=== PATIENT | female | born 1940 | race Caucasian/White ===

== ENCOUNTER 2016-06-04 10:16 | Observation (INO) ==
[2016-06-04 10:52] LABS: Basophils # 0.1 K/mcL (0.0-0.2); Basophils % 0.6 %; Eosinophils # 0.1 K/mcL (0.0-0.6); Eosinophils % 1.5 %; Hemoglobin 12.7 g/dL (11.5-15.4); Immature Granulocytes % 0.4 % (0-4); Lymphocytes % 23.6 %; Mean Corpuscular HGB Conc 30.2 g/dL (31.6-35.5); Mean Corpuscular Hemoglobin 25.3 pg (28.0-33.3); Mean Corpuscular Volume 83.7 fL (83.0-100.0); Mean Platelet Volume 10.1 fL (9.4-12.4); Monocytes # 0.5 K/mcL (0.0-1.3); Monocytes % 6.4 %; Neutrophils # 5.7 K/mcL (1.6-8.9); Platelet Count 236 K/mcL (140-400); Red Blood Count 5.02 M/mcL (3.82-4.97); Red Cell Distribution Width 14.1 % (11.5-14.5); Segmented Neutrophils % 67.5 %
[2016-06-04 10:56] LABS: Prothrombin Time 11.3 Seconds (9.4-12.1)
--- NOTE | 2016-06-04 11:07 | Emergency Department Note ---
Disposition Clinical Impression: Confusion, Carotid artery aneurysm Chest pain Qualifiers: Chest pain type: unspecified Qualified Code(s): R07.9 - Chest pain, unspecified Disposition: Admitted As Inpatient Condition: Fair Forms: ED Satisfaction Letter Time of Disposition: 12:21 Chest Pain HPI - General Chief Complaint: ED Chest Pain Stated Complaint: SOB, CP, AMS Time Seen by Provider: 06/04/16 10:24 Source: patient, EMS Mode of arrival: EMS Limitations: altered mental status Vital Signs Reviewed: Yes Nursing Notes Reviewed: Yes - History of Present Illness HPI Narrative: Patient presents via EMS from her apartment. It was reported that she was confused. She is uncertain of this. She did complain of chest pain that lasted several minutes with spontaneous resolution. It was associated with dyspnea. She denies other symptoms although she is a confused historian Pt complaint: chest pain Onset (ago): hour(s) Duration: now resolved Onset: during rest Pain Location: substernal Severity scale (1-10): 0 Pain Radiation: none Improves with: nothing Worsens with: nothing Associated symptoms: Reports: dyspnea - Related Data On Oral Contraceptives: No Home Medications Medication Instructions Recorded Confirmed Albuterol Sulfate [Proventil Hfa] 2 puff IH Q4H 05/05/15 05/05/15 Amlodipine [Norvasc] 2.5 mg PO DAILY 05/05/15 05/05/15 Aspirin [Adult Low Dose Aspirin EC] 81 mg PO DAILY 05/05/15 05/05/15 Calcium Carbonate/Vitamin D3 1 tab PO DAILY 05/05/15 05/05/15 [Calcium 600 + Vit D Tablet] Clopidogrel [Plavix] 75 mg PO DAILY 05/05/15 05/05/15 Enalapril Maleate [Vasotec] 20 mg PO BID 05/05/15 05/05/15 Ergocalciferol (VITAMIN D2) 50,000 unit PO QWEEK 05/05/15 05/05/15 [Vitamin D2 (50,000 UNIT)] Furosemide [Lasix] 20 mg PO DAILY 05/05/15 05/05/15 Memantine HCl [Namenda Xr] 28 mg PO DAILY 05/05/15 05/05/15 Pravastatin Sodium [Pravachol] 40 mg PO DAILY 05/05/15 05/05/15 Tiotropium [Spiriva] 18 mcg IH DAILY 05/05/15 05/05/15 Previous Rx's Medication Instructions Recorded CloNIDine HCl 0.1 mg PO BID #60 tablet 05/06/15 Acyclovir [Zovirax] 800 mg PO 5XD #50 tablet 09/12/15 Doxycycline 100 mg PO BID #14 capsule 09/12/15 Allergies Allergy/AdvReac Type Severity Reaction Status Date / Time No Known Allergies Allergy Verified 05/05/15 17:44 Limitations: ROS unobtainable due to patients medical condition Chest Pain PMH - Past Medical History Medical history: Reports: diabetes, other Surgical history: Reports: angioplasty/stent, other Psychiatric history: Reports: no psych history - Social History Smoking Status: Never smoker Alcohol use: Reports: none Drug use: Reports: none Physical Exam Alert. Answers most questions appropriately but is confused to certain historical events. Her name, her middle name, her location, but is confused to her daughter's name - General Limitations: altered mental status General appearance: alert, in no apparent distress - Head Head exam: atraumatic - Eye Eye exam: Present: normal appearance - ENT ENT exam: normal exam - Neck Neck exam: Present: normal inspection - Chest Chest inspection: Present: normal inspection, symmetric chest wall rise - Respiratory Respiratory exam: Present: normal lung sounds bilaterally - Cardiovascular Cardiovascular exam: Present: regular rate, normal rhythm, normal heart sounds - Abdominal Exam Abdominal exam: Present: soft, Non-Tender - Extremities Exam Extremities exam: Present: normal inspection - Neurological Exam Neurological exam: Present: alert, oriented X3, other (Moves all 4 extremities with symmetric strength upon request) - Psychiatric Psychiatric exam: Present: normal affect, normal mood - Skin Skin exam: Present: warm, dry, intact Course Course Narrative: The patient presents with confusion. She also described self remitting chest pain and dyspnea. She appears in no acute distress. She is slightly confused but has an otherwise nonfocal neurologic exam. Workup initiated - Reevaluation(s) Reevaluation #1: Patient resting comfortably at time of reexam. She is watching TV but is uncertain what the program is. I am unsure if her confusion is normal baseline for her. I requested admission for chest pain evaluation and observation. Vital Signs Temperature 98.5 F 06/04/16 10:18 Pulse Rate 65 06/04/16 10:18 Respiratory Rate 18 06/04/16 10:18 Blood Pressure 193/82 06/04/16 10:18 O2 Sat by Pulse Oximetry 94 06/04/16 10:18 Temperature 98.5 F 06/04/16 10:18 Pulse Rate 62 06/04/16 11:37 Respiratory Rate 18 06/04/16 11:37 Blood Pressure 131/87 06/04/16 11:37 O2 Sat by Pulse Oximetry 94 06/04/16 11:37 Oxygen Delivery Oxygen Delivery Room Air Chest Pain - Lab Data Lab results reviewed: Yes I reviewed the patient's lab results. Result diagrams: 06/04/16 10:41 06/04/16 10:41 Lab Results 06/04/16 06/04/16 06/04/16 Range/Units 10:41 10:41 10:41 WBC 8.4 (4.3-11.1) K/mcL RBC 5.02 H (3.82-4.97) M/mcL Hgb 12.7 (11.5-15.4) g/dL Hct 42.0 (35.3-44.9) % MCV 83.7 (83.0-100.0) fL MCH 25.3 L (28.0-33.3) pg MCHC 30.2 L (31.6-35.5) g/dL RDW 14.1 (11.5-14.5) % Plt Count 236 (140-400) K/mcL MPV 10.1 (9.4-12.4) fL Immature Gran % 0.4 (0-4) % Seg Neutrophils % 67.5 % Lymphocytes % 23.6 % Monocytes % 6.4 % Eosinophils % 1.5 % Basophils % 0.6 % Neutrophils # 5.7 (1.6-8.9) K/mcL Lymphocytes # 2.0 (0.6-4.6) K/mcL Monocytes # 0.5 (0.0-1.3) K/mcL Eosinophils # 0.1 (0.0-0.6) K/mcL Basophils # 0.1 (0.0-0.2) K/mcL PT 11.3 (9.4-12.1) Seconds INR 1.0 Sodium 139 (136-145) mEq/L Potassium 4.5 (3.5-4.5) mEq/L Chloride 102 (98-109) mEq/L Carbon Dioxide 25 (19-29) mEq/L BUN 24 H (7-20) mg/dL Creatinine 0.99 (0.57-1.11) mg/dL Est GFR ( Amer) > 60 (> 60) Est GFR (Non-Af Amer) 55 L (> 60) BUN/Creatinine Ratio 24 (6-26) Glucose 102 H (70-99) mg/dL Calculated Osmolality 292 (280-300) Calcium 9.6 (8.6-10.8) mg/dL Total Bilirubin 0.6 (0.2-1.2) mg/dL AST 17 (5-34) Units/L ALT 10 (0-55) Units/L Alkaline Phosphatase 80 (38-126) Units/L Troponin I (0-0.03) ng/mL Serum Total Protein 7.0 (6.0-8.3) g/dL Albumin 3.8 (3.5-5.0) g/dL Globulin 3.2 (2.4-3.5) g/dL Albumin/Globulin Ratio 1.2 (1.1-2.2) Urine Color (Yellow) Urine Clarity (Clear) Urine pH (5.0-8.0) pH Units Ur Specific [place] (1.010-1.025) Urine Protein (Neg-Trace) mg/dL Urine Glucose (UA) (Normal) mg/dL Urine Ketones (Negative) mg/dL Urine Blood (Negative) Urine Nitrite (Negative) Urine Bilirubin (Negative) Urine Urobilinogen (Normal) mg/dL Ur Leukocyte Esterase (Negative) 06/04/16 06/04/16 Range/Units 10:41 11:07 WBC (4.3-11.1) K/mcL RBC (3.82-4.97) M/mcL Hgb (11.5-15.4) g/dL Hct (35.3-44.9) % MCV (83.0-100.0) fL MCH (28.0-33.3) pg MCHC (31.6-35.5) g/dL RDW (11.5-14.5) % Plt Count (140-400) K/mcL MPV (9.4-12.4) fL Immature Gran % (0-4) % Seg Neutrophils % % Lymphocytes % % Monocytes % % Eosinophils % % Basophils % % Neutrophils # (1.6-8.9) K/mcL Lymphocytes # (0.6-4.6) K/mcL Monocytes # (0.0-1.3) K/mcL Eosinophils # (0.0-0.6) K/mcL Basophils # (0.0-0.2) K/mcL PT (9.4-12.1) Seconds INR Sodium (136-145) mEq/L Potassium (3.5-4.5) mEq/L Chloride (98-109) mEq/L Carbon Dioxide (19-29) mEq/L BUN (7-20) mg/dL Creatinine (0.57-1.11) mg/dL Est GFR ( Amer) (> 60) Est GFR (Non-Af Amer) (> 60) BUN/Creatinine Ratio (6-26) Glucose (70-99) mg/dL Calculated Osmolality (280-300) Calcium (8.6-10.8) mg/dL Total Bilirubin (0.2-1.2) mg/dL AST (5-34) Units/L ALT (0-55) Units/L Alkaline Phosphatase (38-126) Units/L Troponin I 0.01 (0-0.03) ng/mL Serum Total Protein (6.0-8.3) g/dL Albumin (3.5-5.0) g/dL Globulin (2.4-3.5) g/dL Albumin/Globulin Ratio (1.1-2.2) Urine Color Yellow (Yellow) Urine Clarity Clear (Clear) Urine pH 6.0 (5.0-8.0) pH Units Ur Specific [place] 1.018 (1.010-1.025) Urine Protein Negative (Neg-Trace) mg/dL Urine Glucose (UA) Normal (Normal) mg/dL Urine Ketones Negative (Negative) mg/dL Urine Blood Negative (Negative) Urine Nitrite Negative (Negative) Urine Bilirubin Negative (Negative) Urine Urobilinogen Normal (Normal) mg/dL Ur Leukocyte Esterase Negative (Negative) - Radiology Data Radiology results reviewed: Yes I reviewed the patient's radiology results. - EKG Data EKG attestation: Yes I reviewed and interpreted this EKG. EKG results narrative: Sinus rhythm rate 66 P-R 125 QRS 82 QT/QTC 394/408. No acute ST segment elevation.
[2016-06-04 11:13] LABS: Alanine Aminotransferase 10 Units/L (0-55); Albumin 3.8 g/dL (3.5-5.0); Albumin/Globulin Ratio 1.2 (1.1-2.2); Alkaline Phosphatase 80 Units/L (38-126); Aspartate Amino Transferase 17 Units/L (5-34); BUN/Creatinine Ratio 24 (6-26); Bilirubin,Total 0.6 mg/dL (0.2-1.2); Blood Urea Nitrogen 24 mg/dL (7-20); Calcium 9.6 mg/dL (8.6-10.8); Carbon Dioxide 25 mEq/L (19-29); Chloride 102 mEq/L (98-109); Globulin 3.2 g/dL (2.4-3.5); Glucose 102 mg/dL (70-99); Osmolality,Calculated 292 (280-300); Potassium 4.5 mEq/L (3.5-4.5); Sodium 139 mEq/L (136-145); eGFR For African Americans > 60 (> 60); eGFR For Non-African Americans 55 (> 60)
[2016-06-04 11:18] LABS: Bilirubin,Urine Negative (Negative); Blood,Urine Negative (Negative); Clarity,Urine Clear (Clear); Color,Urine Yellow (Yellow); Glucose,Urine (UA) Normal (Normal); Ketones,Urine Negative (Negative); Leukocyte Esterase,Urine Negative (Negative); Nitrite,Urine Negative (Negative); Protein,Urine Negative (Neg-Trace); Specific Gravity,Urine 1.018 (1.010-1.025); Urobilinogen,Urine Normal (Normal)
[2016-06-04] MEDS ORDERED: Aspirin 81 MG TAB.CHEW PO STA (11:55)
[2016-06-04] MEDS ORDERED: Ipratropium/Albuterol Neb 3 ML IH ONE (12:26)
[2016-06-04] MEDS ORDERED: Naloxone 0.4 MG/ML INJ IVP PRN (13:43)
[2016-06-04] MEDS ORDERED: Acetaminophen 325 MG TABLET PO PRN (13:43)
[2016-06-04] MEDS ORDERED: Nitroglycerin 0.4 MG TAB.SUBL SL PRN (14:07)
[2016-06-04] MEDS ORDERED: Albuterol 2.5 MG/3 ML NEBULIZER IH PRN (14:07)
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
[2016-06-04] MEDS ORDERED: *HR* Dextrose 50 % in Water (Syg) 50 ML SYRINGE IVP PRN (14:37)
[2016-06-04] MEDS ORDERED: Dextrose Gel 15 GM PO PRN ×2 (14:37)
[2016-06-04] MEDS ORDERED: D5% in Water 1,000 ML IVC PRN (14:37)
[2016-06-04] MEDS: cloNIDine HCl 0.1 MG TABLET PO SCH ×2 (15:40→20:01)
[2016-06-04] MEDS ORDERED: Insulin LISPRO 300 UNITS/3 ML VIAL SQ SCH ×2 (16:30→21:00)
[2016-06-04] MEDS ORDERED: amLODIPine 5 MG TABLET PO ONE (16:30)
[2016-06-04] MEDS ORDERED: *HR* Heparin 5,000 UNIT/ML VIAL IVP ONE (17:49)
[2016-06-04] MEDS ORDERED: *HR* Heparin 5,000 UNIT/ML VIAL IVP PRN ×2 (17:49)
[2016-06-04] MEDS ORDERED: Heparin 25,000 UNIT/500 ML D5W 25,000 UNIT/500 ML MLS IVC SCH (18:00)
--- NOTE | 2016-06-04 18:00 | Event Note ---
Date of Encounter: 06/04/16 Time of Encounter: 17:53 elevated troponin- Notified per nursing that patient's Troponin trending upward .04- was .01. Troponin leak Possibly r/t hypertensive urgency and/or - During Dr Hernandez assessment noted that patient's rhythm became irregular/ possibly rt arrhythmia - will initiate heparin gtt-consult cardiology
--- NOTE | 2016-06-04 19:01 | Electrocardiograph Report ---
[place] [id number] Test Date: 2016-06-04 Pat Name: Inocencia Blake Department: 103 Room: 3B11 Gender: F Detasseler: [facility] : 1940 Requested By: Deepak Ansari Order Number: [id number] Reading MD: Chiki Mcfarlane MD Measurements Intervals [place] Rate: 66 P: -61 KS: 125 QRS: 68 QRSD: 82 T: 10 QT: 394 QTc: 408 Interpretive Statements JUNCTIONAL RHYTHM BASELINE ARTIFACT Poor R wave progression Electronically Signed On 06-04-2016 19:00:13 EDT by Chiki Mcfarlane MD
[2016-06-04] MEDS ORDERED: 0.9 % Sodium Chloride 1,000 ML ONE (19:51)
[2016-06-04] MEDS: Lisinopril 20 MG TABLET PO SCH (20:01)
[2016-06-04] MEDS ORDERED: cloNIDine HCl 0.1 MG TABLET PO SCH (21:00)
[2016-06-05 01:03] LABS: Basophils # 0.1 K/mcL (0.0-0.2); Basophils % 0.5 %; Eosinophils # 0.1 K/mcL (0.0-0.6); Eosinophils % 1.5 %; Hematocrit 36.8 % (35.3-44.9); Hemoglobin 11.5 g/dL (11.5-15.4); Immature Granulocytes % 0.2 % (0-4); Lymphocytes # 2.5 K/mcL (0.6-4.6); Lymphocytes % 26.3 %; Mean Corpuscular HGB Conc 31.3 g/dL (31.6-35.5); Mean Corpuscular Hemoglobin 26.2 pg (28.0-33.3); Mean Corpuscular Volume 83.8 fL (83.0-100.0); Mean Platelet Volume 10.4 fL (9.4-12.4); Monocytes # 0.6 K/mcL (0.0-1.3); Monocytes % 6.2 %; Neutrophils # 6.2 K/mcL (1.6-8.9); Platelet Count 202 K/mcL (140-400); Red Blood Count 4.39 M/mcL (3.82-4.97); Segmented Neutrophils % 65.3 %
[2016-06-05 01:17] LABS: BUN/Creatinine Ratio 22 (6-26); Blood Urea Nitrogen 19 mg/dL (7-20); Calcium 8.8 mg/dL (8.6-10.8); Carbon Dioxide 28 mEq/L (19-29); Chloride 102 mEq/L (98-109); Chol/HDL Ratio 3.4 (0-4.9); Cholesterol 163 mg/dL (< 200); Glucose 114 mg/dL (70-99); HDL Cholesterol 48 mg/dL (40-59); LDL Cholesterol,Calculated 99 mg/dL (0-99); Osmolality,Calculated 285 (280-300); Potassium 4.3 mEq/L (3.5-4.5); Sodium 136 mEq/L (136-145); Triglycerides 80 mg/dL (< 150); eGFR For African Americans > 60 (> 60); eGFR For Non-African Americans > 60 (> 60)
[2016-06-05] MEDS: cloNIDine HCl 0.1 MG TABLET PO SCH (08:42)
[2016-06-05] MEDS: Lisinopril 20 MG TABLET PO SCH (08:42)
[2016-06-05] MEDS ORDERED: CALCIUM CARBONATE PO SCH (09:00)
[2016-06-05] MEDS ORDERED: Aspirin Enteric Coated 81 MG Tablet PO SCH (09:00)
[2016-06-05] MEDS ORDERED: amLODIPine 5 MG TABLET PO SCH ×2 (09:00→09:15)
[2016-06-05] MEDS ORDERED: VITAMIN D3 PO SCH (09:00)
[2016-06-05] MEDS ORDERED: Cholecalciferol (D-3) 1,000 UNIT TABLET PO SCH ×2 (09:00)
[2016-06-05] MEDS ORDERED: (Memantine Hcl [Namenda Xr] 28 MG) PO SCH (09:00)
[2016-06-05] MEDS ORDERED: Furosemide 20 MG TABLET PO SCH (09:00)
[2016-06-05] MEDS ORDERED: Tiotropium 18 MCG inhalation IH SCH (09:00)
--- NOTE | 2016-06-05 09:33 | ECHO - Doppler Report ---
Echocardiogram Name: Inocencia Blake Date of Study: 06/04/2016 Date: 1940 Ht: 60.0 in Medical Record#: [id number] Age: 76 Wt: 180.0 lb Gender: Female BSA: 1.78 Order #: [id number] Location: [facility] Room #: 3B11 Reading Physician: Keli Saldivar DO Washing Machine Striper: Alessandra Boss Ordering Physician: Lizy Gil CNP Primary Physician: Wendi Sena MD Indications: Chest pain Impressions: LVEF 65%. Normal left ventricular size and systolic function. There is evidence of moderate diastolic dysfunction of the left ventricle. Normal right ventricular size and function. Normal TD velocity. Normal appearing subcostal images. Mild-moderate mitral regurgitation. Probably severe tricuspid regurgitation that is underestimated by Doppler. Mild pulmonic regurgitation. Degree of pulmonary hypertension is mild by Doppler evaluation of the TR jet but is likely underestimated. Left Ventricular Wall Motion: Rest Echo Findings All wall segments showed normal motion. Findings: Study Quality * Technically adequate exam. ECG Findings * Normal sinus rhythm. Left Ventricle * Normal LV chamber size, wall thickness and function. * Moderate left ventricular diastolic dysfunction. * LVEF 65%. Aorta * Normally sized aortic root. Mitral Valve * Moderate mitral annular calcification * No mitral stenosis. * Mild-moderate mitral regurgitation. * Mildly calcified mitral valve leaflets. Aortic Valve * No aortic regurgitation. * Trileaflet aortic valve. * Mildly calcified aortic valve leaflets. Tricuspid Valve * Normal tricuspid valve structure. * Moderate-severe tricuspid regurgitation (appears severe in subcostal view). * Estimated RA pressure is 3 mmHg. * Estimated RVSP is 44 mmHg. * Mild pulmonary hypertension. Pulmonic Valve * Pulmonic valve is not well visualized. * No pulmonic stenosis. * Mild pulmonic regurgitation. Pulmonary Artery * Pulmonary artery not well visualized. Right Ventricle * Normal right ventricular structure and function. IVS is normal on SAX images. RV function appears normal in subcostal view. Normal Lat S Hector. Right Atrium * Mildly dilated right atrium. Left Atrium * Severely dilated left atrium. Interatrial Septum * No evidence of PFO by color Doppler. IVC * Normal IVC dimensions and inspiratory collapse. History Hypertension Diabetes Hypercholesteremia Years 40 Packs 1 Family History of CAD 08/13/2011 a Previous Echo was performed. Measurements: BP: 128/ 64 2D Normal Values IVSd: 1.60 cm 0.6 - 1.0 cm LVIDd: 3.70 cm 3.7 - 5.6 cm LVPWd: 1.00 cm 0.6 - 1.1 cm LVIDs: 2.30 cm 1.5 - 3.6 cm AO: 2.60 cm < 4.0 cm LA: 4.90 cm 2.0 - 4.0cm %FS: 37.80 cm >25 % LVOT Diam: 1.60 cm LA volume: 103 Mitral Valve Peak Velocity 1.82 m/sec Mean Velocity:.78 m/sec Peak Grad:13.00 mmHg Mean Grad:3.00 mmHg Pressure Time:76.00 msec Valve Area:2.89 cm2 Peak E:1.28 m/sec Peak A:.64 m/sec E/A Ratio:2 Peak E' Lat Hector:7.8 cm/s Peak E' Med Hector:7.21 cm/s E/E' Lat Ratio:16.4 E/E' Med Ratio:17.8 Tricuspid Valve TV Regurg Peak Grad: 41.00mmHg TV Regurg Peak Hector: 3.19m/sec Updated by Keli Saldivar on 06/05/2016 9:26:42 AM electronically signed on 06/05/2016 9:28:35 AM with status of Final Wall Motion Ryder: 1=Normal, 2=Hypokinesis, 3=Akinesis, 4=Dyskinesis, 5=Aneurysmal, 6=Hyperkinetic, X=Not Visualized (Blank)=Missing
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
[2016-06-05 15:21] VITALS: BP 157/72
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
[2016-06-05] MEDS ORDERED: *HR* Heparin 5,000 UNIT/ML VIAL SQ SCH (18:00)
--- NOTE | 2016-06-05 19:11 | Electrocardiograph Report ---
[place] [id number] Test Date: 2016-06-05 Pat Name: Inocencia Blake Department: 113 Room: 3B11 Gender: F Graphics Programmer: FAINA : 1940 Requested By: Lizy Gil Order Number: [id number] Reading MD: Marylin Grace Measurements Intervals [place] Rate: 53 P: -32 NV: 138 QRS: 64 QRSD: 78 T: 6 QT: 459 QTc: 441 Interpretive Statements SINUS BRADYCARDIA SEPTAL MYOCARDIAL INFARCTION, PROBABLY OLD Electronically Signed On 06-05-2016 19:09:46 EDT by Marylin Grace
--- NOTE | 2016-06-08 08:11 | Physician Discharge Referral ---
Home Health/Hosp Referral Info Provider in Charge Post Discharge: PCP - Diagnosis (1) Chest pain Status: Acute (2) Carotid artery aneurysm Priority: Secondary Status: Chronic (3) Confusion Priority: Secondary Status: Chronic (4) Dementia Priority: Secondary Status: Chronic (5) Hypertensive urgency Priority: Secondary Status: Acute (6) DVT prophylaxis Priority: Secondary Status: Acute - Respiratory Orders None Smoking Cessation: Smoking cessation has been advised. For more information, call the [place] Tobacco Quit Line at 0-897-MKWS-NOW. - Diet/Nutrition Diet/Nutrition Orders: Regular - Activity Activity Orders: Up ad lou - Services Needed Following services are medically necessary services: Nursing, Home Health Aide, Physical Therapy, Occupational Therapy - Transfer Medications Home Medications: Albuterol Sulfate [Proventil Hfa] 2 puff IH Q4H 05/05/15 [History] Amlodipine [Norvasc] 2.5 mg PO DAILY 05/05/15 [History] Aspirin [Adult Low Dose Aspirin EC] 81 mg PO DAILY 05/05/15 [History] Calcium Carbonate/Vitamin D3 [Calcium 600 + Vit D Tablet] 1 tab PO DAILY [History] Clopidogrel [Plavix] 75 mg PO DAILY 05/05/15 [History] Enalapril Maleate [Vasotec] 20 mg PO BID 05/05/15 [History] Ergocalciferol (VITAMIN D2) [Vitamin D2 (50,000 UNIT)] 50,000 unit PO QWEEK 12/10 [History] Furosemide [Lasix] 20 mg PO DAILY 05/05/15 [History] Memantine HCl [Namenda Xr] 28 mg PO DAILY 05/05/15 [History] Pravastatin Sodium [Pravachol] 40 mg PO DAILY 05/05/15 [History] Tiotropium [Spiriva] 1 cap IH DAILY 05/05/15 [History] CloNIDine HCl 0.1 mg PO BID #60 tablet 05/06/15 [Rx] Albuterol Neb [Proventil Neb] 2.5 mg IH TID PRN 06/04/16 [History] Carvedilol 12.5 mg PO BID 06/04/16 [History] Allergies/Adverse Reactions: Allergies No Known Allergies Allergy (Verified 05/05/15 17:44) Certification: Further, I certify that my clinical findings support that this patient is homebound (i.e. absences from home require considerable and taxing effort and are for medical reasons or voodoo services or infrequently or short duration when for other reasons) because: Homebound Reason: Patient requires assistance of a person or device to safely leave home, Altered mental status requiring supervision when leaving home Attestation: My signature below is to certify that this patient is under my care and that I, or nurse practitioner, or a physician's machine operator assistant working with me, has a face-to -face encounter with this patient.
== END 2016-06-05 17:17 | disposition home or self-care (01) ==
LOC: 3BNU 10:16 → EMEROO 10:16 → 3BNU 15:12
PROVIDERS: ADMIT Nurse Practitioner Acute Care; ATTEND Nurse Practitioner Family

== ENCOUNTER 2018-10-13 18:22 | Observation (INO) ==
[2018-10-13] MEDS ORDERED: 0.9 % Sodium Chloride 1,000 ML IVC ONE ×2 (19:22→22:36)
[2018-10-13 19:35] LABS: Bilirubin,Urine Negative (Negative); Blood,Urine Small (Negative); Clarity,Urine Cloudy (Clear); Color,Urine Yellow (Yellow); Glucose,Urine (UA) Normal (Normal); Ketones,Urine Negative (Negative); Leukocyte Esterase,Urine Large (Negative); Nitrite,Urine Negative (Negative); Protein,Urine Negative (Neg-Trace); Specific Gravity,Urine 1.014 (1.010-1.025); Urobilinogen,Urine Normal (Normal)
[2018-10-13 19:37] LABS: Bacteria,Urine Moderate per hpf (None-Few); Hyaline Casts,Urine None Seen per lpf (None-Few); RBC,Urine 0-3 per hpf (0-3); Squamous Epithelial Cell,Urine Moderate per lpf (None-Few); WBC,Urine 30-50 per hpf (0-3)
--- NOTE | 2018-10-13 19:41 | Emergency Department Note ---
Disposition Clinical Impression: CRIS (acute kidney injury) UTI (urinary tract infection) Qualifiers: Urinary tract infection type: acute cystitis Hematuria presence: without hematuria Qualified Code(s): N30.00 - Acute cystitis without hematuria Disposition: Admitted As Inpatient Condition: Fair Time of Disposition: 20:59 General Adult HPI - General Chief complaint: ED Nausea/Vomiting/Diarrhea Stated complaint: "abnormal labs, dehydration" Time Seen by Provider: 10/13/18 18:41 Source: patient Mode of arrival: ambulatory Limitations: no limitations Nursing Notes Reviewed: Yes Vital Signs Reviewed: Yes - History of Present Illness HPI Narrative: Patient is a 78-year-old female presenting with abnormal laboratory work. Patient with known history of atrial fibrillation currently on anticoagulation medication, hypertension, hyperlipidemia and breast cancer with metastasis. Rubi fihser was seen at the [facility], had outpatient laboratory work performed which showed elevated serum creatinine and concern for dehydration. She was sent here for further evaluation and recommendations. Patient otherwise denies any current complaints, family states that she has not been drinking as much recently however has been eating appropriately. Normal urine output without dysuria or frequency, no hematuria. There was no by family, that recently had increased Lasix due to fluid overload and history of CHF, however after this, the fluid did come off the legs but now they feel as though she is dehydrated. No chest pain, shortness breath, nausea or vomiting. No abdominal pain. No lightheadedness or dizziness. Pain Scale: 0 - Related Data Home Medications Medication Instructions Recorded Confirmed Anastrozole [Arimidex] 1 mg PO DAILY 04/08/18 10/13/18 Carvedilol 12.5 mg PO BID 04/08/18 10/13/18 Enalapril Maleate [Vasotec] 20 mg PO BID 04/08/18 10/13/18 Memantine HCl [Memantine HCl ER] 21 mg PO DAILY 04/08/18 10/13/18 Pravastatin Sodium [Pravachol] 10 mg PO DAILY 04/08/18 10/13/18 Rivaroxaban [Xarelto] 20 mg PO DAILY 04/08/18 10/13/18 amLODIPine [Norvasc] 10 mg PO DAILY 04/08/18 10/13/18 Calcium Carbonate/Vitamin D3 1 tab PO BID 10/13/18 10/13/18 [Calcium 500-Vit D3 200 Caplet] Furosemide [Lasix] 80 mg PO DAILY 10/13/18 10/13/18 Allergies Allergy/AdvReac Type Severity Reaction Status Date / Time No Known Allergies Allergy Verified 06/04/18 12:46 Review of Systems: In addition to that documented in the HPI above, the additional ROS was obtained: General: Denies fever. Denies chills. Denies weight loss. Denies behavioral change. Eyes: Denies visual changes. ENT: Denies nasal congestion. Denies sore throat. Denies hearing change. Cardio: Denies chest pain. Denies palpitations. Respiratory: Denies cough. Denies shortness of breath. Denies wheezing. GI: Denies nausea, Denies vomiting, or diarrhea. Denies hematochezia denies melena. Denies abdominal pain. : Denies dysuria, hematuria, or urinary retention MSK: Denies back pain. Denies joint swelling. Neuro: Denies slurred speech. Denies numbness or tingling. Denies focal weakness. Denies headache. Denies loss of consciousness. Psych: Denies mood changes. All systems ED: reviewed and negative except as stated. Review of Systems: As Per HPI Past Medical History - Past Medical History Medical history: Reports: coronary artery disease, dementia, diabetes, hypertension, other Surgical history: Reports: angioplasty/stent Psychiatric history: Reports: no psych history - Social History Smoking Status: Never smoker Smokeless Tobacco Status: No Alcohol use: Reports: none Drug use: Reports: none Physical Exam General: Conversant. No apparent distress. Follow commands. Appears stated age. Neck: No JVD. Trachea midline. Neck supple. Eyes: PERRL. No scleral icterus. HENT: Normocephalic and atraumatic. Moist mucus membranes. Cardiovascular: Regular rate and irregularly irregular rhythm. Normal S1 and S2. No murmurs appreciated. Normal capillary refill. Extremities well perfused with 2+ distal pulses bilaterally. 1+ edema. Pulmonary: Normal and equal breath sounds bilaterally, anteriorly and posteriorly. No wheezes, rales, or rhonchi. Not in respiratory distress. Speaks in full sentences. Abdomen: Soft, nondistended, without tenderness. No bruits or masses. No guarding or rebound. Neuro: Alert and oriented x3. No slurred speech. No focal deficits noted. Skin: No rashes noted on visualized skin. Musculoskeletal: No bony abnormalities visualized. Moves all extremities. Psych: Normal mood. Pleasant. Makes appropriate eye contact. - General General appearance: alert, in no apparent distress Course Vital Signs Temperature 98.2 F 10/13/18 18:36 Pulse Rate 66 10/13/18 18:36 Respiratory Rate 16 10/13/18 18:36 Blood Pressure 119/56 10/13/18 18:36 O2 Sat by Pulse Oximetry 96 10/13/18 18:36 Temperature 98.2 F 10/13/18 19:10 Pulse Rate 77 10/13/18 21:33 Respiratory Rate 20 10/13/18 21:33 Blood Pressure 164/72 10/13/18 21:33 O2 Sat by Pulse Oximetry 95 10/13/18 21:33 Oxygen Delivery Oxygen Delivery Room Air Medical Decision Making - MDM Narrative Medical decision making narrative: Patient is a 78-year-old female presenting for abnormal laboratory work. On ex amination, patient is in no acute distress, alert and oriented 3. Patient family has leftward work which shows that today serum creatinine was 2.27. This is a significant increase from patient's baseline. Patient otherwise declines further symptoms. There is note the patient recently had increased her Lasix. Secondary to fluid overload. Upon laboratory evaluation, patient does have an acute kidney injury with a serum creatinine of 2.00, she was also found to have a urinary tract infection. Patient was given Keflex by mouth here in the ER. I do feel as though the patient would be appropriate for admission given acute kidney injury. I did discuss this with the patient as well as family in the room, they are agreeable at this point in time. Patient is stable at time of admission. - Medical Records Medical records reviewed: Yes I reviewed the patient's medical records. - Lab Data Lab results reviewed: Yes I reviewed the patient's lab results. Result diagrams: 10/13/18 19:50 10/13/18 19:50 Lab Results 10/13/18 10/13/18 10/13/18 Range/Units 19:27 19:50 19:50 WBC 9.3 (4.3-11.1) K/mcL RBC 5.13 H (3.82-4.97) M/mcL Hgb 13.1 (11.5-15.4) g/dL Hct 41.7 (35.3-44.9) % MCV 81.3 L (83.0-100.0) fL MCH 25.5 L (28.0-33.3) pg MCHC 31.4 L (31.6-35.5) g/dL RDW 17.0 H (11.5-14.5) % Plt Count 296 (140-400) K/mcL MPV 9.6 (9.4-12.4) fL Sodium 136 (136-145) mEq/L Potassium 4.1 (3.5-5.1) mEq/L Chloride 96 L (98-107) mEq/L Carbon Dioxide 32 H (23-29) mEq/L BUN 68 H (8-23) mg/dL Creatinine 2.00 H (0.60-1.20) mg/dL Est GFR ( Amer) 29 L (> 60) Est GFR (Non-Af Amer) 24 L (> 60) BUN/Creatinine Ratio 34 H (6-26) Glucose 153 H (70-105) mg/dL Calculated Osmolality 305 H (280-300) Calcium 10.1 (8.6-10.3) mg/dL Magnesium 2.3 (1.6-2.6) mg/dL Urine Color Yellow (Yellow) Urine Clarity Cloudy A (Clear) Urine pH 6.0 (5.0-8.0) pH Units Ur Specific [place] 1.014 (1.010-1.025) Urine Protein Negative (Neg-Trace) mg/dL Urine Glucose (UA) Normal (Normal) mg/dL Urine Ketones Negative (Negative) mg/dL Urine Blood Small H (Negative) Urine Nitrite Negative (Negative) Urine Bilirubin Negative (Negative) Urine Urobilinogen Normal (Normal) mg/dL Ur Leukocyte Esterase Large H (Negative) Urine Microscopic RBC 0-3 (0-3) per hpf Urine Microscopic WBC 30-50 H (0-3) per hpf Ur Squamous Epith Cells Moderate H (None-Few) per lpf Urine Bacteria Moderate H (None-Few) per hpf Hyaline Casts None Seen (None-Few) per lpf Ur Culture Indicated? YES A (NO) - EKG Data EKG #1 EKG attestation: Yes I reviewed and interpreted this EKG. EKG results narrative: EKG performed at 1849 with ventricular rate of 77, irregularly irregular rhythm, with normal axis, no ST segment elevation, depression or T-wave changes. Appears to be atrial fibrillation versus a flutter with variable conduction. When compared to old EKG performed on 04/09/2018, appears relatively unchanged.
[2018-10-13 20:07] LABS: Hematocrit 41.7 % (35.3-44.9); Hemoglobin 13.1 g/dL (11.5-15.4); Mean Corpuscular HGB Conc 31.4 g/dL (31.6-35.5); Mean Corpuscular Hemoglobin 25.5 pg (28.0-33.3); Mean Corpuscular Volume 81.3 fL (83.0-100.0); Mean Platelet Volume 9.6 fL (9.4-12.4); Platelet Count 296 K/mcL (140-400); Red Blood Count 5.13 M/mcL (3.82-4.97); White Blood Count 9.3 K/mcL (4.3-11.1)
--- NOTE | 2018-10-13 20:09 | Emergency Department Note ---
Disposition Clinical Impression: CRIS (acute kidney injury) UTI (urinary tract infection) Qualifiers: Urinary tract infection type: acute cystitis Hematuria presence: without hematuria Qualified Code(s): N30.00 - Acute cystitis without hematuria Disposition: Admitted As Inpatient Condition: Fair Referrals: Wendi Sena MD [Primary Care Provider] - Forms: ED Satisfaction Letter Time of Disposition: 21:13 General Adult HPI - General Chief complaint: ED Nausea/Vomiting/Diarrhea Stated complaint: "abnormal labs, dehydration" Time Seen by Provider: 10/13/18 18:41 Source: patient Nursing Notes Reviewed: Yes Vital Signs Reviewed: Yes - History of Present Illness Pain Scale: 0 - Related Data Home Medications Medication Instructions Recorded Confirmed Albuterol Neb [Proventil Neb] 2.5 mg IH Q4HR PRN 04/08/18 04/08/18 Anastrozole [Arimidex] 1 mg PO DAILY 04/08/18 04/08/18 Carvedilol 12.5 mg PO BID 04/08/18 04/08/18 Enalapril Maleate [Vasotec] 20 mg PO BID 04/08/18 04/08/18 Fluticasone/Salmeterol [Advair 1 puff IH BID 04/08/18 04/08/18 250-50 Diskus] Memantine HCl [Memantine HCl ER] 28 mg PO DAILY 04/08/18 04/08/18 Pravastatin Sodium [Pravachol] 40 mg PO DAILY 04/08/18 04/08/18 Rivaroxaban [Xarelto] 15 mg PO DAILY 04/08/18 04/08/18 Tiotropium [Spiriva] 18 mcg IH 0700 04/08/18 04/08/18 amLODIPine [Norvasc] 5 mg PO QDPC 04/08/18 04/08/18 Previous Rx's Medication Instructions Recorded Aspirin 81 mg PO DAILY tab.chew 04/14/18 Furosemide [Lasix] 20 mg PO DAILY #0 04/14/18 Potassium Chloride 20 meq PO DAILY #30 tab.er.prt 04/14/18 Rivaroxaban [Xarelto] 15 mg PO 1700 tablet 04/14/18 Allergies Allergy/AdvReac Type Severity Reaction Status Date / Time No Known Allergies Allergy Verified 06/04/18 12:46 Past Medical History - Past Medical History Medical history: Reports: coronary artery disease, dementia, diabetes, hypertension, other Surgical history: Reports: angioplasty/stent Psychiatric history: Reports: no psych history - Social History Smoking Status: Never smoker Smokeless Tobacco Status: No Alcohol use: Reports: none Drug use: Reports: none Physical Exam - General General appearance: alert, in no apparent distress Course Vital Signs Temperature 98.2 F 10/13/18 18:36 Pulse Rate 66 10/13/18 18:36 Respiratory Rate 16 10/13/18 18:36 Blood Pressure 119/56 10/13/18 18:36 O2 Sat by Pulse Oximetry 96 10/13/18 18:36 Temperature 98.2 F 10/13/18 19:10 Pulse Rate 66 10/13/18 19:10 Respiratory Rate 16 10/13/18 19:10 Blood Pressure 119/56 10/13/18 19:10 O2 Sat by Pulse Oximetry 96 10/13/18 19:10 Oxygen Delivery Oxygen Delivery Room Air Medical Decision Making - Lab Data Result diagrams: 10/13/18 19:50 10/13/18 19:50 Lab Results 10/13/18 10/13/18 10/13/18 Range/Units 19:27 19:50 19:50 WBC 9.3 (4.3-11.1) K/mcL RBC 5.13 H (3.82-4.97) M/mcL Hgb 13.1 (11.5-15.4) g/dL Hct 41.7 (35.3-44.9) % MCV 81.3 L (83.0-100.0) fL MCH 25.5 L (28.0-33.3) pg MCHC 31.4 L (31.6-35.5) g/dL RDW 17.0 H (11.5-14.5) % Plt Count 296 (140-400) K/mcL MPV 9.6 (9.4-12.4) fL Sodium 136 (136-145) mEq/L Potassium 4.1 (3.5-5.1) mEq/L Chloride 96 L (98-107) mEq/L Carbon Dioxide 32 H (23-29) mEq/L BUN 68 H (8-23) mg/dL Creatinine 2.00 H (0.60-1.20) mg/dL Est GFR ( Amer) 29 L (> 60) Est GFR (Non-Af Amer) 24 L (> 60) BUN/Creatinine Ratio 34 H (6-26) Glucose 153 H (70-105) mg/dL Calculated Osmolality 305 H (280-300) Calcium 10.1 (8.6-10.3) mg/dL Magnesium 2.3 (1.6-2.6) mg/dL Urine Color Yellow (Yellow) Urine Clarity Cloudy A (Clear) Urine pH 6.0 (5.0-8.0) pH Units Ur Specific [place] 1.014 (1.010-1.025) Urine Protein Negative (Neg-Trace) mg/dL Urine Glucose (UA) Normal (Normal) mg/dL Urine Ketones Negative (Negative) mg/dL Urine Blood Small H (Negative) Urine Nitrite Negative (Negative) Urine Bilirubin Negative (Negative) Urine Urobilinogen Normal (Normal) mg/dL Ur Leukocyte Esterase Large H (Negative) Urine Microscopic RBC 0-3 (0-3) per hpf Urine Microscopic WBC 30-50 H (0-3) per hpf Ur Squamous Epith Cells Moderate H (None-Few) per lpf Urine Bacteria Moderate H (None-Few) per hpf Hyaline Casts None Seen (None-Few) per lpf Ur Culture Indicated? YES A (NO) Attestation Statement - Attestation Attestation: I examined this patient and my medical decision-making was reviewed with the Resident Physician. I agree with the documented findings, disposition and treatment plan as described except to the extent set forth below. Patient to the ED with abnormal labs. Patient was seen at the [facility] for her cancer follow-up. She has metastatic breast cancer. He did some outpatient labs showed a creatinine of 2.2 so she was sent in for evaluation. Concern for dehydration. He did take her off her Lasix. Patient has been eating and drinking normally per family. No vomiting or diarrhea. On examination she appears well. Tachycardia mucous membranes. Abdomen is soft. Lungs are clear. Plan. We will repeat her labs and give her some IV hydration here and reevaluate. EKG was reviewed with the resident. Patient with an acute kidney injury any UTI. Antibiotics ordered. IV fluids given. Patient is admitted.
[2018-10-13 20:22] LABS: Calcium 10.1 mg/dL (8.6-10.3); Magnesium 2.3 mg/dL (1.6-2.6); Potassium 4.1 mEq/L (3.5-5.1)
[2018-10-13] MEDS ORDERED: cephALEXin 500 MG CAPSULE PO ONE (20:59)
--- NOTE | 2018-10-13 22:38 | Internal Med History&Physical ---
Date of Encounter: 10/13/18 Time of Encounter: 03:17 Internal Medicine - H&P: HPI Chief complaint: abnormal labs History of present illness: Ms. Blake is a 78 year old female with past medical history of coronary artery disease, dementia, diabetes, hypertension, presented from her primary care physician office with abnormal labs. The patient diuretic dose was increased recently. The patient denies any complains except FOR BEING concerned about her kidney function. The patient was evaluated by the ER staff and her laboratory data confirmed acute kidney injury. There was also evidence of GI tract infection. The patient was admitted for further evaluation and management. Past Med Surg Social Fam HX - Past Medical History Medical history: coronary artery disease, dementia, diabetes, hypertension, other Additional medical history: breast cancer Psychiatric history: no psych history - Past Surgical History Surgical History: angioplasty/stent Additional surgical history: STENTS IN HEART AND BRAIN - Social History Smoking Status: Never smoker Smokeless Tobacco Status: No Alcohol use: none Drug use: none - Family History Son Adopted: No Family Member Ethnicity: Non- Living Status: Still Living Hx Family Cardiac Disorders: Yes (HTN) Hx Family Endocrine Disorder: Yes (DM) Father Living Status: Mother Living Status: Hx Family Endocrine Disorder: Yes (DM) Internal Medicine - H&P: Meds Anastrozole [Arimidex] 1 mg PO DAILY 04/08/18 [History] Carvedilol 12.5 mg PO BID 04/08/18 [History] Memantine HCl [Memantine HCl ER] 21 mg PO DAILY 04/08/18 [History] Pravastatin Sodium [Pravachol] 10 mg PO DAILY 04/08/18 [History] Rivaroxaban [Xarelto] 20 mg PO DAILY 04/08/18 [History] amLODIPine [Norvasc] 10 mg PO DAILY 04/08/18 [History] Calcium Carbonate/Vitamin D3 [Calcium 500-Vit D3 200 Caplet] 1 tab PO BID 10/13/18 [History] Amoxicillin/Clavulanate [Augmentin] 875 mg PO BIDWM 4 Days #8 tablet 10/14/18 [Rx] Allergy/AdvReac Type Severity Reaction Status Date / Time No Known Allergies Allergy Verified 06/04/18 12:46 All Systems PM: A 10-system review of systems was performed and is negative for pertinent findings except as documented above in the HPI. - Constitutional Vitals: Temp Pulse Resp BP Pulse Ox 98.2 F 77 20 164/72 95 10/13/18 19:10 10/13/18 21:33 10/13/18 21:33 10/13/18 21:33 10/13/18 21:33 General appearance: Present: A&O X 3 Exam: . - Head Head exam: Present: atraumatic, normocephalic - Neck Neck exam general surgery: Present: supple, trachea midline. Absent: lymphadenopathy - Respiratory Respiratory exam: Present: CTAB. Absent: accessory muscle use, rales, rhonchi, wheezes - Cardiovascular Cardiovascular exam: Present: RRR, +S1, +S2. Absent: diastolic murmur, gallop, rubs, systolic murmur - GI/Abdominal GI/Abdominal exam: Present: normal bowel sounds, soft, no peritoneal signs. Absent: distended, tenderness - Extremities Exam Extremities exam: Present: warm, radial pulses palpable and symmetrical. Absent: calf tenderness, cyanotic, pedal edema Internal Med - H&P Results - Labs CBC & Chem 7: 10/14/18 04:17 10/14/18 04:17 Labs: Short CBC 10/13/18 Range/Units 19:50 WBC 9.3 (4.3-11.1) K/mcL Hgb 13.1 (11.5-15.4) g/dL Hct 41.7 (35.3-44.9) % Plt Count 296 (140-400) K/mcL BMP 10/13/18 19:50 Sodium 136 Potassium 4.1 Chloride 96 L Carbon Dioxide 32 H BUN 68 H Creatinine 2.00 H Glucose 153 H Calcium 10.1 Urine 10/13/18 Range/Units 19:27 Urine Color Yellow (Yellow) Urine Clarity Cloudy A (Clear) Urine pH 6.0 (5.0-8.0) pH Units Ur Specific [place] 1.014 (1.010-1.025) Urine Protein Negative (Neg-Trace) mg/dL Urine Glucose (UA) Normal (Normal) mg/dL - Assessment and Plan (1) CRIS (acute kidney injury) Status: Acute Assessment and plan: Likely secondary to volume depletion in the setting of diuretic regiment in combination with Yuan inhibitors. We will start IV hydration with normal saline, hold YUAN inhibitor for now, and repeat renal panel in a.m., renal dosing of medication as better current EGFR. (2) UTI (urinary tract infection) Status: Acute Assessment and plan: We will start the patient on empiric antibiotics and repeat clean-catch urine analysis Qualifiers: Urinary tract infection type: acute cystitis Hematuria presence: without hematuria Qualified Code(s): N30.00 - Acute cystitis without hematuria (3) AAA (abdominal aortic aneurysm) Status: Acute Qualifiers: Presence of rupture: without rupture Qualified Code(s): I71.4 - Abdominal aortic aneurysm, without rupture (4) Breast cancer Status: Acute Qualifiers: Breast location: unspecified site of breast Estrogen receptor status: unspecified Patient sex: female Laterality: unspecified laterality Qualified Code(s): C50.919 - Malignant neoplasm of unspecified site of unspecified female breast (5) CAD (coronary artery disease) Status: Acute Assessment and plan: We will cont. home meds Qualifiers: Coronary Disease-Associated Artery/Lesion type: [place] artery [place] vs. transplanted heart: [place] heart Associated angina: without angina Qualified Code(s): I25.10 - Atherosclerotic heart disease of [place] coronary artery without angina pectoris (6) Carotid artery aneurysm Status: Acute (7) Cerebral aneurysm Status: Acute (8) Dementia Status: Acute Qualifiers: Dementia type: unspecified type Dementia behavioral disturbance: with behavioral disturbance Qualified Code(s): F03.91 - Unspecified dementia with behavioral disturbance (9) Atrial fibrillation Status: Chronic Qualifiers: Atrial fibrillation type: unspecified Qualified Code(s): I48.91 - Unspecified atrial fibrillation - Time Spent With Patient Total time spent is greater than 50% in coordination of care (as documented) at patient's floor/unit and/or counseling patient:
[2018-10-14] MEDS ORDERED: Acetaminophen 325 MG TABLET PO PRN (01:48)
[2018-10-14] MEDS ORDERED: Ondansetron 4 MG/2 ML VIAL IVP PRN (01:48)
[2018-10-14] MEDS ORDERED: Naloxone 0.4 MG/ML INJ IVP PRN (01:48)
[2018-10-14] MEDS ORDERED: 0.9 % Sodium Chloride 1,000 ML IVC SCH (02:00)
[2018-10-14 04:58] LABS: Basophils # 0.1 K/mcL (0.0-0.2); Basophils % 0.6 %; Eosinophils # 0.2 K/mcL (0.0-0.6); Eosinophils % 1.8 %; Hematocrit 43.9 % (35.3-44.9); Hemoglobin 13.6 g/dL (11.5-15.4); Immature Granulocytes % 0.3 % (0-4); Lymphocytes # 2.7 K/mcL (0.6-4.6); Mean Corpuscular Hemoglobin 25.8 pg (28.0-33.3); Mean Corpuscular Volume 83.1 fL (83.0-100.0); Monocytes # 0.7 K/mcL (0.0-1.3); Monocytes % 6.9 %; Neutrophils # 6.2 K/mcL (1.6-8.9); Platelet Count 300 K/mcL (140-400); Red Blood Count 5.28 M/mcL (3.82-4.97); Red Cell Distribution Width 16.8 % (11.5-14.5); Segmented Neutrophils % 63.4 %; White Blood Count 9.9 K/mcL (4.3-11.1)
[2018-10-14 05:11] LABS: INR 1.3; Prothrombin Time 14.2 Seconds (9.4-12.1)
[2018-10-14 05:12] LABS: Activated Partial Thrombo Time 34.5 Seconds (26.0-36.0)
[2018-10-14 05:13] LABS: Albumin 4.3 g/dL (3.5-5.7); Albumin/Globulin Ratio 1.5 (1.1-2.2); Bilirubin,Total 0.5 mg/dL (0.3-1.0); Calcium 9.4 mg/dL (8.6-10.3); Globulin 2.9 g/dL (2.4-3.5); Magnesium 2.2 mg/dL (1.6-2.6); Phosphorous 2.5 mg/dL (2.7-4.5); Potassium 3.8 mEq/L (3.5-5.1); Total Protein 7.2 g/dL (6.4-8.9)
[2018-10-14 08:05] VITALS: BP 133/70
[2018-10-14] MEDS ORDERED: cefTRIAXone 1,000 MG in Water for inj. (sterile) 10 ML IVP SCH (09:00)
[2018-10-14] MEDS ORDERED: MEMANTINE HCL PO SCH (09:00)
[2018-10-14] MEDS ORDERED: Anastrozole 1 MG TABLET PO SCH (09:00)
[2018-10-14] MEDS ORDERED: amLODIPine 5 MG TABLET PO SCH (09:00)
[2018-10-14] MEDS ORDERED: *HR* Rivaroxaban 10 MG TABLET PO SCH (09:00)
--- NOTE | 2018-10-14 09:51 | Discharge Summary ---
- NOTES TO OUTPATIENT PROVIDER Notes to Outpatient Provider: Repeat BMP in 5 days and follow up with PCP. Orders not resulted at time of discharge: Pending orders 10/13/18 19:27 Culture,Urine [RM] Stat 10/14/18 04:00 Urinalysis reflex Microscopic [URIN] AM 0400 Date of Encounter: 10/14/18 Time of Encounter: 07:30 - Discharge Diagnosis (1) CRIS (acute kidney injury) Priority: Primary Status: Acute (2) UTI (urinary tract infection) Priority: Secondary Status: Acute Qualifiers: Urinary tract infection type: acute cystitis Hematuria presence: without hematuria Qualified Code(s): N30.00 - Acute cystitis without hematuria (3) CAD (coronary artery disease) Priority: Secondary Status: Acute Qualifiers: Coronary Disease-Associated Artery/Lesion type: [place] artery [place] vs. transplanted heart: [place] heart Associated angina: without angina Qualified Code(s): I25.10 - Atherosclerotic heart disease of [place] coronary artery without angina pectoris (4) AAA (abdominal aortic aneurysm) Priority: Secondary Status: Acute Qualifiers: Presence of rupture: without rupture Qualified Code(s): I71.4 - Abdominal aortic aneurysm, without rupture (5) Cerebral aneurysm Priority: Secondary Status: Acute (6) Carotid artery aneurysm Priority: Secondary Status: Acute (7) Breast cancer Priority: Secondary Status: Acute Qualifiers: Breast location: unspecified site of breast Estrogen receptor status: unspecified Patient sex: female Laterality: unspecified laterality Qualified Code(s): C50.919 - Malignant neoplasm of unspecified site of unspecified female breast (8) Dementia Priority: Secondary Status: Acute Qualifiers: Dementia type: unspecified type Dementia behavioral disturbance: with behavioral disturbance Qualified Code(s): F03.91 - Unspecified dementia with behavioral disturbance (9) Atrial fibrillation Priority: Secondary Status: Chronic Qualifiers: Atrial fibrillation type: unspecified Qualified Code(s): I48.91 - Unspecified atrial fibrillation Hospital course: Ms. Blake is a 78 year old female with hx of CAD, dementia, HTN, and breast CA, who was admitted for elevated Cr noted on outpatient lab. Cr was 2.0 (baseline 0.9) in the setting of recently increased dose of diuretics (for peripheral edema) and the addition of enalapril. Although she was not able to give reliable history of dysuria or urinary frequency due to her dementia, there was a concern for mild confusion and foul-smelling urine from the family member. Cr improved with IVF overnight as well as 1 dose of abx and she will be discharged home on a total of 5 days of abx for acute cystitis and discontinuation of Lasix and enalapril until repeat BMP is done in 5 days. Discharge discussed with: patient, family, nurse - Time Spent with Patient Total time spent providing and/or coordinating discharge services: 28 mins - Discharge Medications Prescriptions: New Amoxicillin/Clavulanate [Augmentin] 875 mg PO BIDWM 4 Days #8 tablet Continued Carvedilol 12.5 mg PO BID Memantine HCl [Memantine HCl ER] 21 mg PO DAILY Pravastatin Sodium [Pravachol] 10 mg PO DAILY Rivaroxaban [Xarelto] 20 mg PO DAILY amLODIPine [Norvasc] 10 mg PO DAILY Anastrozole [Arimidex] 1 mg PO DAILY Calcium Carbonate/Vitamin D3 [Calcium 500-Vit D3 200 Caplet] 1 tab PO BID Discontinued Enalapril Maleate [Vasotec] 20 mg PO BID Furosemide [Lasix] 80 mg PO DAILY Home Medications: Anastrozole [Arimidex] 1 mg PO DAILY 04/08/18 [History] Carvedilol 12.5 mg PO BID 04/08/18 [History] Memantine HCl [Memantine HCl ER] 21 mg PO DAILY 04/08/18 [History] Pravastatin Sodium [Pravachol] 10 mg PO DAILY 04/08/18 [History] Rivaroxaban [Xarelto] 20 mg PO DAILY 04/08/18 [History] amLODIPine [Norvasc] 10 mg PO DAILY 04/08/18 [History] Calcium Carbonate/Vitamin D3 [Calcium 500-Vit D3 200 Caplet] 1 tab PO BID 10/13/18 [History] Amoxicillin/Clavulanate [Augmentin] 875 mg PO BIDWM 4 Days #8 tablet 10/14/18 [Rx] Allergies/Adverse Reactions: Allergy/AdvReac Type Severity Reaction Status Date / Time No Known Allergies Allergy Verified 06/04/18 12:46 Date of admission: 10/13/18 22:51 Primary care physician: Wendi Sena - Constitutional Vitals: Temp Pulse Resp BP Pulse Ox 97.8 F 84 18 133/70 95 08/20/19 07:51 10/14/18 07:51 10/14/18 07:51 10/14/18 07:51 10/14/18 07:51 General appearance: Present: A&O X 3 Exam: General: Alert and pleasantly confused Cardiovascular:Normal S1 & S2, No JVD. Pulse regular. Lungs: clear to auscultation, no wheezes/rales Abdomen:Soft, non-tender, no rigidity. : No CVA tenderness Neurological: Moving all 4 limbs without difficulty - Patient Status Disposition: Home, Self-Care Condition: Fair Overall status at discharge: patient is progressing back to baseline - Discharge Instructions Instructions: Urinary Tract Infection in Women (DC) Follow Up With: Wendi Sena MD [Primary Care Provider] - - Diet and Activity Activity: resume usual activities as tolerated Diet: regular diet
--- NOTE | 2018-10-14 10:41 | Electrocardiograph Report ---
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
== END 2018-10-14 10:29 | disposition home or self-care (01) ==
LOC: 3ANU 18:22 → EMEROOARM 18:22 → 3ANU 23:07
PROVIDERS: ADMIT Internal Medicine Nephrology; ATTEND Internal Medicine Nephrology